=== PATIENT | female | born 1975 | race Two or more races ===

== ENCOUNTER 2020-09-10 00:31 | Inpatient (IN) | payer BC ==
[~2020-09-10] VITALS: Ht 160 cm; Wt 83.9 kg
[2020-09-10] MEDS ORDERED: SYNTHROID100 MCG PO (00:42)
[2020-09-10] MEDS ORDERED: METFORMIN HCL500 MG (00:43)
== END 2020-09-11 15:40 | disposition home or self-care (01) | DRG 494 ==
LOC: ER 00:31 → SEC-K 09:40 → SURH 09:40
PROVIDERS: ADMIT Orthopaedic Surgery; ATTEND Orthopaedic Surgery
PROC: 0QSJ04Z Reposition Right Fibula with Internal Fixation Device, Open Approach (ICD-10-PCS; principal; 2020-09-10)
DX: S82.61XA Displaced fracture of lateral malleolus of right fibula, initial encounter for closed fracture (principal); E03.8 Other specified hypothyroidism

== ENCOUNTER → 2020-09-30 08:44 | Outpatient (CLI) | payer BC ==
[~2020-09-30 08:44] MED LIST: METFORMIN HCL500 MG; SYNTHROID100 MCG PO
== END | disposition home or self-care (01) ==
LOC: RAD 08:44
PROVIDERS: ATTEND Orthopaedic Surgery
DX: S93.431D Sprain of tibiofibular ligament of right ankle, subsequent encounter (principal)